=== PATIENT | female | born 1950 | race Caucasian/White ===

== ENCOUNTER 2020-03-09 13:41 | Emergency (ER) | payer OTHER ==
[~2020-03-09] VITALS: Ht 167.6 cm; Wt 72.6 kg
[2020-03-09] MEDS ORDERED: BUPROPION XL150 MG PO (14:51)
[2020-03-09] MEDS ORDERED: ATORVASTATIN CA80 MG PO (14:51)
[2020-03-09] MEDS ORDERED: SERTRALINE HCL100 MG PO (14:51)
[2020-03-09] MEDS ORDERED: JANUVIA100 MG PO (14:51)
[2020-03-09] MEDS ORDERED: CARTIA XT300 M1 PO (14:51)
[2020-03-09] MEDS ORDERED: GLYBURIDE 2.52.5 M1 PO (14:52)
[2020-03-09] MEDS ORDERED: TRIAMTERENE-HC1 EAC3 PO (14:52)
[2020-03-09] MEDS ORDERED: EUTHYROX88 MCG PO (14:52)
[2020-03-09 14:53] LABS: ABSOLUTE NEUTROPHILS 4.3 thou/uL (1.4-8.2); BASOPHILS 0.2 % (0.0-2.0); EOSINOPHILS 2.1 % (0.0-3.0); HEMATOCRIT 38.7 % (37.0-47.0); HEMOGLOBIN 13.2 gm/dL (12.0-15.0); LYMPHOCYTES 18.2 % (24.0-44.0); MCH 30.4 pg (26.0-34.0); MCHC 34.1 g/dL (28.0-37.0); MCV 89.1 fL (80.0-100.0); MONOCYTES 11.8 % (1.0-8.0); PLATELET COUNT 207 thou/uL (150-400); POLYS 67.7 % (36.0-66.0); RBC 4.34 mil/uL (4.20-5.00); RDW 12.9 % (10.5-14.5); WBC 6.3 thou/uL (4.0-11.0)
[2020-03-09 15:15] LABS: ALBUMIN 3.1 g/dL (3.4-5.0); ANION GAP 9 mmol/L (7-16); BUN 21 mg/dL (7-18); CALCIUM 8.6 mg/dL (8.5-10.1); CHLORIDE 101 mmol/L (98-107); CO2 27 mmol/L (21-32); CREATININE 1.3 mg/dL (0.6-1.0); GLUCOSE 132 mg/dL (74-106); LIPASE 107 U/L (73-393); SGOT 17 U/L (15-37); SGPT 21 U/L (30-65); SODIUM 137 mmol/L (136-145); TOTAL BILIRUBIN 0.8 mg/dL (0.2-1.0); TOTAL PROTEIN 6.9 g/dL (6.4-8.2); TROPONIN-I <0.06 ng/mL (<0.06)
[2020-03-09 15:19] LABS: POTASSIUM 2.6 mmol/L (3.5-5.1)
[2020-03-09 16:11] LABS: URINE BILIRUBIN NEGATIVE (Negative); URINE BLOOD NEGATIVE (Negative); URINE CLARITY CLEAR; URINE COLOR YELLOW; URINE GLUCOSE-RANDOM* NEGATIVE (Negative); URINE KETONES NEGATIVE (Negative); URINE LEUKOCYTES-REFLEX NEGATIVE (Negative); URINE NITRITE-REFLEX NEGATIVE (Negative); URINE PROTEIN (DIPSTICK) NEGATIVE (Negative); URINE UROBILINOGEN 0.2 E.U./dl (0.2-1.0)
[2020-03-09] MEDS ORDERED: PEPCID20 MG PO (16:26)
[2020-03-09] MEDS ORDERED: ZOFRAN ODT4 MG DISSOLVE (16:26)
[2020-03-09] MEDS ORDERED: KLOR-CON 1010 MEQ PO (16:26)
[2020-03-09 17:03] VITALS: BP 125/63
--- NOTE | 2020-03-10 07:39 | EKG ---
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: [facility] : [id number] Requested By: Paula Beltran Order Number: [id number] MD: Trace Newman Measurements Intervals [place] Rate: 70 P: 62 DC: 223 QRS: -8 QRSD: 105 T: 25 QT: 424 QTc: 458 Interpretive Statements Sinus rhythm Prolonged DC interval No previous ECG available for comparison Electronically Signed On 03-10-2020 7:39:42 CDT by Trace Newman [email or web address] <ELECTRONICALLY SIGNED> By: Trace Newman MD, [facility] 03/10/20 0739 145 145 Trace Newman MD, [facility] /EPI
== END 2020-03-09 17:04 | disposition home or self-care (01) ==
LOC: ER 13:41
PROVIDERS: Physician Assistant
DX: R11.2 Nausea with vomiting, unspecified (principal); R19.7 Diarrhea, unspecified; E87.6 Hypokalemia; I10 Essential (primary) hypertension; E11.9 Type 2 diabetes mellitus without complications; Z90.49 Acquired absence of other specified parts of digestive tract; Z79.899 Other long term (current) drug therapy; Z88.2 Allergy status to sulfonamides; Z88.8 Allergy status to other drugs, medicaments and biological substances